=== PATIENT | male | born 1955 | race Caucasian/White ===

== ENCOUNTER 2016-07-13 05:45 | Day surgery (SDC) | payer OTHER, SELFPAY ==
--- NOTE | ~2016-07-13 | O ---
[facility] [address] [place] [address] OPERATIVE REPORT Name: KARINA MIRANDA Room #: 150-4 [facility]..#: [id number] Admission: 07/13/16 Attend Phys: Rishabh Joesph MD Discharge: Date of : 57 Report #: [id number] THIS REPORT FOR: //name// CC: Micah Joseph DATE OF SERVICE: 07/13/2016 PREOPERATIVE DIAGNOSIS: Right hip postoperative hematoma. POSTOPERATIVE DIAGNOSIS: Right hip postoperative hematoma. PROCEDURE: 1. Evacuation of right hip hematoma. 2. Placement of wound VAC over the right hip incision. SURGEON: Rishabh Joseph MD. PREPRESS PROOFER: Fiona Blanco PA-C. ANESTHESIA: General. ESTIMATED BLOOD LOSS: 25 mL. COMPLICATIONS: None. SPECIMENS: None. CONDITION UPON LEAVING THE OPERATING ROOM: Stable. INDICATIONS FOR PROCEDURE: The patient is a 60-year-old gentleman who is 2 weeks out from a right total hip arthroplasty. He has had persistent serosanguineous drainage from his hip and was seen yesterday in the office. A large amount of fluid was draining from his hip, and it was decided that he likely had a postoperative hematoma. After discussion with him, he elected for evacuation of his hematoma. DESCRIPTION OF PROCEDURE: Risks, benefits, alternatives, and complications were discussed in detail with the patient including but not limited to risk of anesthesia, risk of damage to nerves, arteries, blood vessels, risk for infection, bleeding, and need for reoperation. An informed consent was obtained from the patient. Right hip was appropriately marked in the preoperative holding area. IV Ancef was given for preoperative antibiotics, was brought to the operating room and placed in the supine position on the operating room table. General endotracheal anesthesia was induced without complication. He was placed in the left lateral decubitus position with the right hip uppermost. [facility] [address] [place] [address] OPERATIVE REPORT Name: RUTHKARINA Karina Room #: 150-4 [facility]..#: [id number] Admission: 07/13/16 Attend Phys: Rishabh Joseph MD Discharge: Date of : 57 Report #: [id number] Right hip and lower extremity were prepped and draped in the normal sterile fashion. A timeout was performed properly identifying the patient and procedure, as well as the instrumentation. All in the operating room were in agreement. The previous incision was opened with #10 blade and a large hematoma was drained and evacuated. This is in the adipose layer. The fascial incision was found to be intact without compromise. The hip was taken through range of motion and no fluid was expressed from the deeper layers, and so this was left alone. The space from the hematoma was then thoroughly irrigated with normal saline using pulse lavage. The adipose layer was closed in 2 layers using 0 Vicryl. Skin was closed with 2-0 Vicryl and skin love. A deep drain was placed prior to closure of the deep space, and a Prevena wound VAC was placed. The patient tolerated this procedure well and went to the recovery room under the care of anesthesia postoperatively. <ELECTRONICALLY SIGNED> By: Rishabh Joseph MD 07/14/16 1553 [id number] Rishabh Joseph MD /nt
[~2016-07-13 05:45] MED LIST: CVS BUFFERED A325 MG PO; KEFLEX500 MG PO; MS CONTIN15 MG PO; NEURONTIN 300300 M1 PO; PERCOCET PO; STOOL SOFTENER100 M1 PO; ULTRA-LIGHT RO1 EACH MC; VITAMIN B122500 MC1 PO; VITAMINC500 PO
[2016-07-13 08:16] LABS: HEMATOCRIT 36.1 % (42.0-52.0); HEMOGLOBIN 12.2 gm/dL (14.0-18.0); MCH 30.8 pg (26.0-34.0); MCHC 33.8 g/dL (28.0-37.0); MCV 91.4 fL (80.0-100.0); RBC 3.96 mil/uL (4.50-6.00); RDW 13.9 % (10.5-14.5); WBC 8.8 thou/uL (4.0-11.0)
== END 2016-07-13 12:57 | disposition home or self-care (01) ==
LOC: TBA 05:45 → OR 05:45 → TBA 05:46 → OR 10:50
PROVIDERS: Orthopaedic Surgery
DX: M96.840 Postprocedural hematoma of a musculoskeletal structure following a musculoskeletal system procedure (principal); M16.11 Unilateral primary osteoarthritis, right hip
CPT/HCPCS: 50010; 50101; 50382; 50414; 50612; 50953; 51412; 51771; 53078; 56528; 57095; 62110; 62900; 70005